=== PATIENT | male | born 1955 | race Two or more races ===

== ENCOUNTER → 2017-02-09 | Outpatient (REF) | payer OTHER ==
[2017-02-09 12:16] LABS: BASO # 0.1 K/mm3 (0.0-0.2); BASO % 0.7 % (0.0-1.0); EOS # 0.6 K/mm3 (0.0-0.50); EOS % 7.9 % (0.0-3.0); LARGE UNSTAINED CELL # 0.2 K/mm3 (0.0-0.4); LARGE UNSTAINED CELL % 2.7 % (0.0-4.0); LYMPH # 2.7 K/mm3 (1.5-4.5); LYMPH % 34.3 % (24.0-44.0); MEAN CORPUSCULAR HEMOGLOBIN 29.5 pg (27.0-33.0); MEAN CORPUSCULAR HGB CONC 34.1 g/dl (32.0-36.5); MEAN CORPUSCULAR VOLUME 86.4 fl (80.0-96.0); MONO # 0.6 K/mm3 (0.0-0.8); MONO % 7.4 % (0.0-5.0); NEUTROPHILS # 3.7 K/mm3 (1.8-7.7); PLATELET COUNT, AUTOMATED 227 k/mm3 (150-450); RED CELL DISTRIBUTION WIDTH 13.3 % (11.5-14.5); WHITE BLOOD COUNT 7.8 K/mm3 (4.0-10.0)
[2017-02-09 12:57] LABS: ALBUMIN 4.2 GM/DL (3.2-5.2); ALBUMIN/GLOBULIN RATIO 1.35 (1.00-1.93); ALKALINE PHOSPHATASE 50 U/L (45-117); ALT/SGPT 33 U/L (12-78); ANION GAP 6 MEQ/L (8-16); AST/SGOT 16 U/L (15-37); BILIRUBIN,TOTAL 0.4 MG/DL (0.2-1.0); BLOOD UREA NITROGEN 15 MG/DL (7-18); CALCIUM LEVEL 8.6 MG/DL (8.8-10.2); CARBON DIOXIDE LEVEL 28 MEQ/L (21-32); CHLORIDE LEVEL 105 MEQ/L (98-107); CHOLESTEROL LEVEL 160 MG/DL (<200); GLOMERULAR FILTRATION RATE > 60.0 (>49); GLUCOSE, FASTING 89 MG/DL (80-110); MAGNESIUM LEVEL 2.3 MG/DL (1.8-2.4); POTASSIUM SERUM 4.3 MEQ/L (3.5-5.1); SODIUM LEVEL 139 MEQ/L (136-145); T UPTAKE 34 % (33-40); THYROXINE (T4) 6.6 UG/DL (4.5-12.0); TOTAL PROTEIN 7.3 GM/DL (6.4-8.2); TRIGLYCERIDES LEVEL 125 MG/DL (<150); URIC ACID 5.6 MG/DL (3.5-7.2)
== END ==
LOC: M LABDRAWC 11:53
PROVIDERS: ATTEND Internal Medicine Cardiovascular Disease
DX: I10 Essential (primary) hypertension (principal); I25.10 Atherosclerotic heart disease of native coronary artery without angina pectoris; E11.9 Type 2 diabetes mellitus without complications; E03.9 Hypothyroidism, unspecified; D64.9 Anemia, unspecified; E55.9 Vitamin D deficiency, unspecified; M32.9 Systemic lupus erythematosus, unspecified; M06.9 Rheumatoid arthritis, unspecified; N40.1 Benign prostatic hyperplasia with lower urinary tract symptoms

== ENCOUNTER 2018-11-15 13:33 | Emergency (ER) | payer BC, OTHER ==
[~2018-11-15] VITALS: Ht 175.3 cm; Wt 90.9 kg
[2018-11-15] MEDS ORDERED: ASPI1TAB PO (13:45)
[2018-11-15] MEDS ORDERED: METO1TAB7 PO (13:45)
--- NOTE | 2018-11-15 14:12 | REP ---
CT brain without contrast: History: Injury in a fall. 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 Bone window settings show no evidence of skull fracture. There is no significant scalp hematoma. There is hyperdensity in the cruz matter of the left and medial frontal lobe consistent with petechial hemorrhage. There is some subtle adjacent white matter edema. Findings compatible with hemorrhagic contusion. No extra-axial fluid collection is seen. No other finding. Impression: Petechial gyral pattern of hemorrhage in the left medial frontal lobe consistent with hemorrhagic contusion. Some adjacent subtle white matter edema is seen. Otherwise negative. Findings telephoned to Dr. Eaton in the ED at the time of this dictation. Electronically Signed by Dong Ledezma MD 11/15/2018 02:04 P
[2018-11-15 14:38] LABS: BASO # 0.1 10^3/uL (0.0-0.2); BASO % 0.7 % (0.0-1.0); EOS # 0.5 10^3/uL (0.0-0.50); EOS % 6.2 % (0.0-3.0); HEMATOCRIT 46.9 % (42.0-52.0); HEMOGLOBIN 15.8 g/dl (13.5-17.5); LYMPH # 2.7 10^3/uL (1.5-4.5); LYMPH % 31.7 % (24.0-44.0); MEAN CORPUSCULAR HGB CONC 33.7 g/dl (32.0-36.5); MEAN CORPUSCULAR VOLUME 86.2 fl (80.0-96.0); MONO # 0.8 10^3/uL (0.0-0.8); MONO % 8.8 % (0.0-5.0); NEUTROPHILS # 4.4 10^3/uL (1.8-7.7); NEUTROPHILS % 51.9 % (36.0-66.0); PLATELET COUNT, AUTOMATED 215 10^3/uL (150-450); RED BLOOD COUNT 5.44 10^6/uL (4.30-6.10); WHITE BLOOD COUNT 8.5 10^3/uL (4.0-10.0)
[2018-11-15] MEDS ORDERED: MONT10TA2 PO (15:00)
[2018-11-15] MEDS ORDERED: CETI10TA PO (15:02)
[2018-11-15] MEDS ORDERED: LEVO25TA5 PO (15:02)
[2018-11-15] MEDS ORDERED: AMLO5TAB6 PO (15:02)
[2018-11-15 15:15] LABS: ALBUMIN 4.2 GM/DL (3.2-5.2); ALT/SGPT 42 U/L (12-78); BILIRUBIN,TOTAL 0.5 MG/DL (0.2-1.0); BLOOD UREA NITROGEN 14 MG/DL (7-18); CARBON DIOXIDE LEVEL 27 MEQ/L (21-32); CHLORIDE LEVEL 103 MEQ/L (98-107); CREATININE FOR GFR 0.99 MG/DL (0.70-1.30); GLOMERULAR FILTRATION RATE > 60.0 (>49); GLUCOSE, FASTING 123 MG/DL (70-100); POTASSIUM SERUM 4.4 MEQ/L (3.5-5.1); SODIUM LEVEL 136 MEQ/L (136-145); TOTAL PROTEIN 7.7 GM/DL (6.4-8.2)
[2018-11-15] MEDS ORDERED: LABETALOL HCL 100 MG/20 ML VIAL IV STA (15:23)
[2018-11-15 15:44] VITALS: BP 168/93
[2018-11-15 16:15] VITALS: BP 135/84
== END 2018-11-15 16:47 | disposition short-term general hospital (02) ==
LOC: M ED 13:33
DX: S06.9X1A Unspecified intracranial injury with loss of consciousness of 30 minutes or less, initial encounter (principal); W01.198A Fall on same level from slipping, tripping and stumbling with subsequent striking against other object, initial encounter; Y92.410 Unspecified street and highway as the place of occurrence of the external cause; I10 Essential (primary) hypertension; G47.33 Obstructive sleep apnea (adult) (pediatric); Z79.899 Other long term (current) drug therapy; Z79.82 Long term (current) use of aspirin

== ENCOUNTER → 2018-12-18 | Outpatient (CLI) | payer BC, OTHER ==
[~2018-12-18] MED LIST: AMLO5TAB6 PO; ASPI1TAB PO; CETI10TA PO; LEVO25TA5 PO; METO1TAB7 PO; MONT10TA2 PO
--- NOTE | 2018-12-18 13:38 | REP ---
CT STUDY OF THE BRAIN WITHOUT CONTRAST: HISTORY: Subarachnoid hemorrhage. Comparison study November 15, 2018. CT FINDINGS: The bony calvarium is intact. There is mucosal thickening and a small quantity of fluid in the frontal and ethmoid sinuses bilaterally. A mucous retention cyst is seen in the sphenoid sinus. These findings are little more prominent than on the November 15, 2018. There is minimal vascular calcification the carotid siphons. The previously noted gyral pattern of increased density in the left medial frontal lobe has resolved. No encephalomalacia is visible. No extra-axial fluid collection is seen. There is no evidence of intracranial hemorrhage on the current CT study. IMPRESSION: Minimal vascular calcification. No acute intracranial abnormality. Previously noted hemorrhagic contusion changes have resolved. Electronically Signed by Dong Ledezma MD 12/18/2018 05:04 P
== END ==
LOC: M RAD 12:48
PROVIDERS: ATTEND Family Medicine
DX: J34.1 Cyst and mucocele of nose and nasal sinus (principal); Z86.79 Personal history of other diseases of the circulatory system

== ENCOUNTER → 2019-04-02 | Outpatient (REF) | payer OTHER ==
[~2019-04-02] MED LIST changes: -ASPI1TAB PO; +ASPI81TA26 PO
[2019-04-02 17:33] LABS: HEMOGLOBIN A1c 6.2 %
[2019-04-02 17:55] LABS: MALB URINE SIEMENS 23.3 MG/L; MAU/CREAT RATIO 9.5 MCG/MG (0.0-30.0)
== END ==
LOC: M SFHCCLAY 12:04
PROVIDERS: ATTEND Family Medicine
DX: E11.9 Type 2 diabetes mellitus without complications (principal)

== ENCOUNTER → 2019-04-22 | Outpatient (REF) | payer OTHER ==
[2019-04-22 12:28] LABS: CHOLESTEROL RISK RATIO 3.55 (<5); FREE T4 1.03 NG/DL (0.76-1.46); THYROID STIMULATING HORMONE 6.44 uIU/ML (0.358-3.740)
== END ==
LOC: M SFHCCLAY 07:05
PROVIDERS: ATTEND Family Medicine
DX: E03.9 Hypothyroidism, unspecified (principal); E78.5 Hyperlipidemia, unspecified

== ENCOUNTER → 2019-07-10 | Outpatient (REF) | payer OTHER ==
[2019-07-11 13:51] LABS: HEMOGLOBIN A1c 5.8 %
== END ==
LOC: M SFHCCLAY 15:27
PROVIDERS: ATTEND Family Medicine
DX: E11.9 Type 2 diabetes mellitus without complications (principal)

== ENCOUNTER → 2019-12-29 | Outpatient (REF) | payer OTHER ==
[~2019-12-29] MED LIST changes: -MONT10TA2 PO; +MONT10TA4 PO
[2019-12-29 16:24] LABS: BLOOD UREA NITROGEN 19 MG/DL (7-18); CALCIUM LEVEL 8.5 MG/DL (8.8-10.2); CARBON DIOXIDE LEVEL 27 MEQ/L (21-32); CHLORIDE LEVEL 107 MEQ/L (98-107); CREATININE FOR GFR 1.07 MG/DL (0.70-1.30); GLOMERULAR FILTRATION RATE > 60.0 (>49); GLUCOSE, FASTING 96 MG/DL (70-100); SODIUM LEVEL 140 MEQ/L (136-145)
[2019-12-29 17:45] LABS: HEMOGLOBIN A1c 5.8 %
== END ==
LOC: M SFHCCLAY 10:00
PROVIDERS: ATTEND Family Medicine
DX: E11.9 Type 2 diabetes mellitus without complications (principal); I10 Essential (primary) hypertension

== ENCOUNTER → 2020-06-30 | Outpatient (REF) | payer OTHER ==
[~2020-06-30] MED LIST changes: +AMLO1TAB24 PO; -AMLO5TAB6 PO
[2020-06-30 12:21] LABS: BLOOD UREA NITROGEN 12 MG/DL (7-18); CALCIUM LEVEL 8.7 MG/DL (8.8-10.2); CARBON DIOXIDE LEVEL 29 MEQ/L (21-32); CHLORIDE LEVEL 105 MEQ/L (98-107); CHOLESTEROL LEVEL 180 MG/DL (<200); CHOLESTEROL RISK RATIO 4.186 (<5); CREATININE FOR GFR 1.12 MG/DL (0.70-1.30); GLOMERULAR FILTRATION RATE > 60.0 (>49); GLUCOSE, FASTING 91 MG/DL (70-100); HDL CHOLESTEROL 43 MG/DL (>40); LDL CHOLESTEROL 117 MG/DL (<100); NON-HDL-C 137 MG/DL; POTASSIUM SERUM 4.4 MEQ/L (3.5-5.1); SODIUM LEVEL 139 MEQ/L (136-145); TRIGLYCERIDES LEVEL 100 MG/DL (<150)
[2020-06-30 12:46] LABS: HEMOGLOBIN A1c 5.4 %
[2020-06-30 12:53] LABS: MALB URINE SIEMENS < 5.0 MG/L; MAU/CREAT RATIO 4.3 MCG/MG (0.0-30.0)
== END ==
LOC: M SFHCCLAY 11:10
PROVIDERS: ATTEND Family Medicine
DX: I11.9 Hypertensive heart disease without heart failure (principal); E11.9 Type 2 diabetes mellitus without complications

== ENCOUNTER 2020-08-31 07:34 | Emergency (ER) | payer BC, OTHER ==
[~2020-08-31] VITALS: Ht 177.8 cm; Wt 77.7 kg
[~2020-08-31 07:34] MED LIST changes: -MONT10TA4 PO; +MONT5TAB2 PO
[2020-08-31] MEDS ORDERED: VALS1TAB67 (07:45)
[2020-08-31] MEDS ORDERED: AMLO1TAB25 (07:45)
--- NOTE | 2020-08-31 08:13 | REP ---
INDICATION: CHEST PAIN COMPARISON: None. TECHNIQUE: Portable AP view of the chest FINDINGS: The mediastinum and cardiac silhouette are stable and within normal limits for portable technique. The lung cunningham are clear without acute consolidation, effusion, or pneumothorax. Skeletal structures are intact. IMPRESSION: No acute cardiopulmonary process appreciated. No focal consolidation or effusion. <Electronically signed by Jose Deleon > 08/31/20 0849
[2020-08-31] MEDS ORDERED: GI COCKTAIL 50ML BTL(HYOSCYAMINE/MAALOX/LIDOCAINE VISCOUS)(1:3:1) PO ONE (08:15)
[2020-08-31 08:17] LABS: BASO # 0.1 10^3/uL (0.0-0.2); EOS # 0.4 10^3/uL (0.0-0.5); EOS % 7.1 % (0.0-3.0); HEMATOCRIT 45.1 % (42.0-52.0); LYMPH # 2.2 10^3/uL (1.5-5.0); LYMPH % 36.3 % (24.0-44.0); MEAN CORPUSCULAR HEMOGLOBIN 30.1 pg (27.0-33.0); MEAN CORPUSCULAR HGB CONC 33.3 g/dl (32.0-36.5); MEAN CORPUSCULAR VOLUME 90.4 fl (80.0-96.0); MONO # 0.6 10^3/uL (0.0-0.8); MONO % 10.4 % (0.0-5.0); NEUTROPHILS # 2.8 10^3/uL (1.5-8.5); NEUTROPHILS % 44.7 % (36.0-66.0); PLATELET COUNT, AUTOMATED 211 10^3/uL (150-450); RED BLOOD COUNT 4.99 10^6/uL (4.30-6.10); WHITE BLOOD COUNT 6.2 10^3/uL (4.0-10.0)
[2020-08-31 08:28] LABS: INR 1.04; PARTIAL THROMBOPLASTIN TIME 29.8 SECONDS (24.2-38.5); PROTHROMBIN TIME 13.8 SECONDS (12.5-14.3)
[2020-08-31 08:51] LABS: ALBUMIN 4.3 GM/DL (3.2-5.2); ALT/SGPT 27 U/L (12-78); BILIRUBIN,DIRECT 0.2 MG/DL (0.0-0.2); BLOOD UREA NITROGEN 16 MG/DL (7-18); CALCIUM LEVEL 9.2 MG/DL (8.8-10.2); CARBON DIOXIDE LEVEL 30 MEQ/L (21-32); CHLORIDE LEVEL 103 MEQ/L (98-107); CK-MB VALUE MASS < 1.0 NG/ML (<3.6); CPK CREATINE PHOSPHOKINASE 145 U/L (39-308); CREATININE FOR GFR 1.27 MG/DL (0.70-1.30); FREE T4 0.97 NG/DL (0.76-1.46); GLOMERULAR FILTRATION RATE > 60.0 (>49); GLUCOSE, FASTING 94 MG/DL (70-100); LIPASE 225 U/L (73-393); MB/CK RELATIVE INDEX 0.69 (< OR =4); POTASSIUM SERUM 4.5 MEQ/L (3.5-5.1); SODIUM LEVEL 138 MEQ/L (136-145); TOTAL PROTEIN 7.7 GM/DL (6.4-8.2); TROPONIN I < 0.02 NG/ML (< 0.10)
[2020-08-31 13:25] VITALS: BP 133/78
--- NOTE | 2020-08-31 21:00 | ECGEPIP ---
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
--- NOTE | 2020-08-31 21:11 | ECGEPIP ---
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
== END 2020-08-31 13:27 | disposition home or self-care (01) ==
LOC: M ED 07:34
DX: R07.9 Chest pain, unspecified (principal); R00.1 Bradycardia, unspecified; I10 Essential (primary) hypertension; Z79.899 Other long term (current) drug therapy
CPT/HCPCS: 36415; 71045; 80047; 80048; 80076; 82550; 82553; 83690; 84439; 84443; 84484; 85025; 85610; 85730; 93005; 93041; 94760; 99285; U0002

== ENCOUNTER → 2020-10-19 | Outpatient (CLI) | payer SELFPAY ==
[~2020-10-19] MED LIST changes: +AMLO1TAB25; +VALS1TAB67
== END ==
LOC: M LABSMTC 14:19
PROVIDERS: ATTEND Pediatrics
DX: Z20.822 Contact with and (suspected) exposure to COVID-19 (principal)

== ENCOUNTER → 2021-03-30 | Outpatient (REF) | payer OTHER ==
[~2021-03-30] MED LIST changes: +MONT10TA10 PO; -MONT5TAB2 PO
[2021-03-30 12:18] LABS: HEMOGLOBIN A1c 5.7 %
[2021-03-30 12:44] LABS: MALB URINE SIEMENS 7.5 MG/L; MAU/CREAT RATIO 6.5 MCG/MG (0.0-30.0)
[2021-03-30 13:10] LABS: BLOOD UREA NITROGEN 12 MG/DL (7-18); CALCIUM LEVEL 9.2 MG/DL (8.8-10.2); CARBON DIOXIDE LEVEL 29 MEQ/L (21-32); CHLORIDE LEVEL 105 MEQ/L (98-107); CHOLESTEROL LEVEL 212 MG/DL (<200); CREATININE FOR GFR 1.14 MG/DL (0.70-1.30); FREE T4 0.98 NG/DL (0.76-1.46); GLOMERULAR FILTRATION RATE > 60.0 (>49); GLUCOSE, FASTING 90 MG/DL (70-100); HDL CHOLESTEROL 43 MG/DL (>40); LDL CHOLESTEROL 138 MG/DL (<100); NON-HDL-C 169 MG/DL; POTASSIUM SERUM 4.5 MEQ/L (3.5-5.1); SODIUM LEVEL 137 MEQ/L (136-145); TRIGLYCERIDES LEVEL 155 MG/DL (<150)
== END ==
LOC: M SFHCCLAY 06:57
PROVIDERS: ATTEND Family Medicine
DX: E03.9 Hypothyroidism, unspecified (principal); E11.9 Type 2 diabetes mellitus without complications; E78.5 Hyperlipidemia, unspecified

== ENCOUNTER → 2021-04-15 | Outpatient (CLI) | payer BC, OTHER ==
--- NOTE | 2021-04-15 15:32 | REPVR ---
PROCEDURE INFORMATION: Exam: CT Maxillofacial Without Contrast, Sinus Exam date and time: 04/15/2021 3:10 PM Age: 65 years old Clinical indication: Pain; Other: Sinus; Additional info: Chronic sinusitis TECHNIQUE: Imaging protocol: CT Maxillofacial without contrast. Focus on the sinuses. Radiation optimization: All CT scans at this facility use at least one of these dose optimization techniques: automated exposure control; mA and/or kV adjustment per patient size (includes targeted exams where dose is matched to clinical indication); or iterative reconstruction. COMPARISON: CT Head without contrast 12/18/2018 12:57 PM FINDINGS: Frontal sinuses: Mild right frontal sinus mucosal thickening. The right frontal recess is opacified by mucosal disease. Pneumatization of the right frontal sinus extends across midline. The left frontal recess is opacified by mucosal disease but the remainder of the left frontal sinus is clear. Ethmoid air cells: There is right greater than left ethmoid opacity. Sphenoid sinuses: Mild polypoid mucosal thickening in the inferior left sphenoid sinus. The right sphenoid sinus is clear. Maxillary sinuses: [id number] polypoid mucosal thickening in the maxillary sinuses. Likely prior uncinectomies and nasal antral window procedures. The sinus drainage pathways are opacified by mucosal disease. Nasal cavity/Septum: Prior middle turbinectomies. No nasal cavity mass is seen. As visualized, the chronic sinusitis is similar to the prior study. There is left maxillary periapical lucency, likely chronic. Orbital cavity: Orbits are normal. Globes are unremarkable. Bones/joints: Unremarkable. Soft tissues: Unremarkable. IMPRESSION: [id number] chronic sinusitis with opacification of the frontal recesses and maxillary sinus drainage pathways. Electronically signed by: Kelly Talamantes On 04/15/2021 15:32:44 PM
== END ==
LOC: M RAD 14:50
PROVIDERS: ATTEND Specialist
DX: J32.8 Other chronic sinusitis (principal)

== ENCOUNTER → 2021-10-03 | Outpatient (REF) | payer OTHER ==
[~2021-10-03] MED LIST changes: -MONT10TA10 PO; +MONT10TA97 PO
[2021-10-03 12:44] LABS: HEMOGLOBIN A1c 5.5 %
[2021-10-03 13:05] LABS: BLOOD UREA NITROGEN 15 MG/DL (7-18); CALCIUM LEVEL 9.1 MG/DL (8.8-10.2); CARBON DIOXIDE LEVEL 29 MEQ/L (21-32); CHLORIDE LEVEL 105 MEQ/L (98-107); CREATININE FOR GFR 1.09 MG/DL (0.70-1.30); FREE T4 0.96 NG/DL (0.76-1.46); GLOMERULAR FILTRATION RATE > 60.0 (>49); GLUCOSE, FASTING 91 MG/DL (70-100); POTASSIUM SERUM 4.3 MEQ/L (3.5-5.1); SODIUM LEVEL 138 MEQ/L (136-145)
== END ==
LOC: M SFHCCLAY 07:16
PROVIDERS: ATTEND Family Medicine
DX: E11.9 Type 2 diabetes mellitus without complications (principal); I11.9 Hypertensive heart disease without heart failure; E03.9 Hypothyroidism, unspecified

== ENCOUNTER → 2022-03-30 | Outpatient (REF) | payer OTHER ==
[2022-03-30 11:46] LABS: HEMOGLOBIN A1c 5.7 %
[2022-03-30 12:04] LABS: BLOOD UREA NITROGEN 21 MG/DL (7-18); CALCIUM LEVEL 9.2 MG/DL (8.8-10.2); CARBON DIOXIDE LEVEL 25 MEQ/L (21-32); CHLORIDE LEVEL 106 MEQ/L (98-107); CHOLESTEROL LEVEL 176 MG/DL (<200); CHOLESTEROL RISK RATIO 4.512 (<5); CREATININE FOR GFR 1.13 MG/DL (0.70-1.30); GLOMERULAR FILTRATION RATE > 60.0 (>49); GLUCOSE, FASTING 86 MG/DL (70-100); HDL CHOLESTEROL 39 MG/DL (>40); LDL CHOLESTEROL 113 MG/DL (<100); NON-HDL-C 137 MG/DL; POTASSIUM SERUM 4.2 MEQ/L (3.5-5.1); SODIUM LEVEL 140 MEQ/L (136-145); TRIGLYCERIDES LEVEL 118 MG/DL (<150)
[2022-03-30 12:10] LABS: CREATININE, URINE 65.9 MG/DL; MALB URINE SIEMENS < 5.0 MG/L; MAU/CREAT RATIO 7.5 MCG/MG (0.0-30.0)
== END ==
LOC: M SFHCCLAY 07:07
PROVIDERS: ATTEND Family Medicine
DX: E11.9 Type 2 diabetes mellitus without complications (principal); I11.9 Hypertensive heart disease without heart failure

== ENCOUNTER → 2022-04-12 | Outpatient (CLI) | payer BC, OTHER | LOC: M RAD 07:20 | PROVIDERS: ATTEND Family Medicine | DX: R10.11 Right upper quadrant pain (principal); N28.1 Cyst of kidney, acquired; R14.0 Abdominal distension (gaseous) ==

== ENCOUNTER → 2022-09-29 | Outpatient (REF) | payer OTHER ==
[2022-09-29 17:17] LABS: BASO # 0.1 10^3/uL (0.0-0.2); BASO % 1.3 % (0.0-1.0); EOS # 0.4 10^3/uL (0.0-0.5); EOS % 5.5 % (0.0-3.0); HEMATOCRIT 50.5 % (42.0-52.0); HEMOGLOBIN 16.5 g/dl (13.5-17.5); LYMPH # 2.8 10^3/uL (1.5-5.0); LYMPH % 39.9 % (24.0-44.0); MEAN CORPUSCULAR HEMOGLOBIN 29.4 pg (27.0-33.0); MEAN CORPUSCULAR HGB CONC 32.7 g/dl (32.0-36.5); MONO # 0.8 10^3/uL (0.0-0.8); MONO % 11.1 % (2.0-8.0); NEUTROPHILS % 41.6 % (36.0-66.0); PLATELET COUNT, AUTOMATED 213 10^3/uL (150-450); RED BLOOD COUNT 5.61 10^6/uL (4.30-6.10); WHITE BLOOD COUNT 7.1 10^3/uL (4.0-10.0)
[2022-09-29 17:32] LABS: HEMOGLOBIN A1c 5.7 % (4.0-6.0)
[2022-09-29 18:06] LABS: ALBUMIN 4.5 G/DL (3.2-5.2); ALKALINE PHOSPHATASE 53 U/L (46-116); ALT/SGPT 41 U/L (7.0-40); AST/SGOT 28 U/L (<34); BILIRUBIN,TOTAL 0.6 MG/DL (0.3-1.2); BLOOD UREA NITROGEN 18 MG/DL (9-23); CALCIUM LEVEL 9.6 MG/DL (8.3-10.6); CARBON DIOXIDE LEVEL 27 MMOL/L (20-31); CHLORIDE LEVEL 101 MMOL/L (98-107); CHOLESTEROL LEVEL 196 MG/DL (<200); CHOLESTEROL RISK RATIO 4.72 (<5); CREATININE FOR GFR 1.06 MG/DL (0.70-1.30); FREE T4 0.98 NG/DL (0.89-1.76); GLOMERULAR FILTRATION RATE > 60.0 (>49); GLUCOSE, FASTING 90 MG/DL (74-106); HDL CHOLESTEROL 41.5 MG/DL (>40); LDL CHOLESTEROL 120.3 MG/DL (<100); NON-HDL-C 155 MG/DL; POTASSIUM SERUM 4.6 MMOL/L (3.5-5.1); SODIUM LEVEL 137 MMOL/L (136-145); THYROID STIMULATING HORMONE 4.731 uIU/ML (0.55-4.78); TOTAL PROTEIN 7.8 G/DL (5.7-8.2); TRIGLYCERIDES LEVEL 171 MG/DL (<150)
== END ==
LOC: M SFHCCLAY 10:50
PROVIDERS: ATTEND Family Medicine
DX: I10 Essential (primary) hypertension (principal); E03.9 Hypothyroidism, unspecified; E11.9 Type 2 diabetes mellitus without complications; Z12.5 Encounter for screening for malignant neoplasm of prostate; J30.9 Allergic rhinitis, unspecified
CPT/HCPCS: 80053; 80061; 83036; 84439; 84443; 85025; G0103

== ENCOUNTER → 2022-12-04 | Outpatient (REF) | payer OTHER ==
[2022-12-04 11:57] LABS: CHOLESTEROL RISK RATIO 2.66 (<5); HDL CHOLESTEROL 41.2 MG/DL (>40); LDL CHOLESTEROL 53.2 MG/DL (<100)
== END ==
LOC: M SFHCCLAY 07:06
PROVIDERS: ATTEND Family Medicine
DX: E78.5 Hyperlipidemia, unspecified (principal)

== ENCOUNTER → 2023-04-12 | Outpatient (REF) | payer OTHER ==
[2023-04-12 12:25] LABS: APPEARANCE, URINE CLEAR (CLEAR); BACTERIA, URINE AUTO NEGATIVE (NEGATIVE); BILIRUBIN, URINE AUTO NEGATIVE (NEGATIVE); BLOOD, URINE BLOOD NEGATIVE (NEGATIVE); COLOR, URINE YELLOW (YELLOW); GLUCOSE, URINE (UA) AUTO NEGATIVE (NEGATIVE); KETONE, URINE AUTO NEGATIVE (NEGATIVE); LEUKOCYTE ESTERASE, URINE AUTO NEGATIVE (NEGATIVE); MUCUS, URINE SMALL (NEGATIVE); NITRITE, URINE AUTO NEGATIVE (NEGATIVE); PROTEIN, URINE AUTO NEGATIVE (NEGATIVE); RBC, URINE AUTO 0 /HPF (0-3); SPECIFIC GRAVITY URINE AUTO 1.012 (1.002-1.035); SQUAMOUS EPITHELIAL CELL UR AU 0 /HPF (0-6); UROBILINOGEN, URINE AUTO 0.2 mg/dL (0.0-2.0); WBC, URINE AUTO 0 /HPF (0-3)
[2023-04-12 12:31] LABS: ALBUMIN 4.1 G/DL (3.2-5.2); ALKALINE PHOSPHATASE 44 U/L (46-116); ALT/SGPT 41 U/L (7.0-40); AST/SGOT 23 U/L (<34); BILIRUBIN,TOTAL 0.6 MG/DL (0.3-1.2); BLOOD UREA NITROGEN 10 MG/DL (9-23); CALCIUM LEVEL 9.2 MG/DL (8.3-10.6); CARBON DIOXIDE LEVEL 28 MMOL/L (20-31); CHLORIDE LEVEL 105 MMOL/L (98-107); CHOLESTEROL LEVEL 100 MG/DL (<200); CHOLESTEROL RISK RATIO 2.93 (<5); CREATININE FOR GFR 1.04 MG/DL (0.70-1.30); GLOMERULAR FILTRATION RATE > 60.0 (>49); GLUCOSE, FASTING 91 MG/DL (74-106); HDL CHOLESTEROL 34.1 MG/DL (>40); LDL CHOLESTEROL 46.5 MG/DL (<100); NON-HDL-C 65.9 MG/DL; POTASSIUM SERUM 4.2 MMOL/L (3.5-5.1); SODIUM LEVEL 138 MMOL/L (136-145); TOTAL PROTEIN 6.9 G/DL (5.7-8.2); TRIGLYCERIDES LEVEL 97 MG/DL (<150)
[2023-04-12 12:45] LABS: CREATININE, URINE 137.2 MG/DL; MAU/CREAT RATIO 2.1 MCG/MG (0.0-30.0)
== END ==
LOC: M SFHCCLAY 07:10
PROVIDERS: ATTEND Family Medicine
DX: I10 Essential (primary) hypertension (principal); E11.9 Type 2 diabetes mellitus without complications

== ENCOUNTER → 2023-09-24 | Outpatient (REF) | payer OTHER ==
[2023-09-24 12:53] LABS: ALBUMIN 4.2 G/DL (3.2-5.2); ALKALINE PHOSPHATASE 43 U/L (46-116); ALT/SGPT 45 U/L (7.0-40); AST/SGOT 33 U/L (<34); BILIRUBIN,TOTAL 0.9 MG/DL (0.3-1.2); BLOOD UREA NITROGEN 20 MG/DL (9-23); CALCIUM LEVEL 8.7 MG/DL (8.3-10.6); CARBON DIOXIDE LEVEL 28 MMOL/L (20-31); CHLORIDE LEVEL 102 MMOL/L (98-107); CREATININE FOR GFR 1.07 MG/DL (0.70-1.30); GLOMERULAR FILTRATION RATE > 60.0 (>49); GLUCOSE, FASTING 99 MG/DL (74-106); POTASSIUM SERUM 4.7 MMOL/L (3.5-5.1); SODIUM LEVEL 136 MMOL/L (136-145); TOTAL PROTEIN 7.1 G/DL (5.7-8.2)
[2023-09-24 12:54] LABS: FREE T4 0.98 NG/DL (0.89-1.76); THYROID STIMULATING HORMONE 7.077 uIU/ML (0.55-4.78)
[2023-09-24 13:43] LABS: HEMOGLOBIN A1c 5.9 % (4.0-6.0)
== END ==
LOC: M SFHCCLAY 07:05
PROVIDERS: ATTEND Family Medicine
DX: I10 Essential (primary) hypertension (principal); E03.9 Hypothyroidism, unspecified; E11.9 Type 2 diabetes mellitus without complications; Z12.5 Encounter for screening for malignant neoplasm of prostate

== ENCOUNTER → 2023-10-01 | Outpatient (REF) | payer OTHER ==
[2023-10-01 13:12] LABS: CHOLESTEROL LEVEL 112 MG/DL (<200); CHOLESTEROL RISK RATIO 2.71 (<5); HDL CHOLESTEROL 41.3 MG/DL (>40); LDL CHOLESTEROL 57.3 MG/DL (<100); NON-HDL-C 70.7 MG/DL; TRIGLYCERIDES LEVEL 67 MG/DL (<150)
[2023-10-01 13:32] LABS: HEPATITIS B SURFACE ANTIBODY POSITIVE (POSITIVE)
[2023-10-01 13:39] LABS: HIV 1&2 SCREEN NEGATIVE (NEGATIVE)
[2023-10-01 13:47] LABS: HEPATITIS C VIRUS ABY INDEX 0.05 INDEX (<0.8)
[2023-10-02 23:07] LABS: ANA (HEP2) Negative (.); HEPATITIS B CORE ANTIBODY IGG Negative (Negative); LIVER-KIDNEY MICROSOMAL ABY <20.1 Units (0.0-20.0)
== END ==
LOC: M SFHCCLAY 07:03
PROVIDERS: ATTEND Family Medicine
DX: Z20.9 Contact with and (suspected) exposure to unspecified communicable disease (principal); I10 Essential (primary) hypertension; E78.5 Hyperlipidemia, unspecified; R74.01 Elevation of levels of liver transaminase levels; Z28.21 Immunization not carried out because of patient refusal

== ENCOUNTER → 2024-01-02 | Outpatient (REF) | payer OTHER ==
[2024-01-02 18:44] LABS: THYROID STIMULATING HORMONE 5.265 uIU/ML (0.55-4.78)
[2024-01-02 18:45] LABS: FREE T4 1.02 NG/DL (0.89-1.76)
== END ==
LOC: M SFHCCLAY 11:08
PROVIDERS: ATTEND Family Medicine
DX: R79.89 Other specified abnormal findings of blood chemistry (principal)

== ENCOUNTER → 2024-04-02 | Outpatient (REF) | payer BC ==
[2024-04-02 11:48] LABS: APPEARANCE, URINE CLEAR (CLEAR); BACTERIA, URINE AUTO NEGATIVE (NEGATIVE); BILIRUBIN, URINE AUTO NEGATIVE (NEGATIVE); BLOOD, URINE BLOOD NEGATIVE (NEGATIVE); COLOR, URINE YELLOW (YELLOW); GLUCOSE, URINE (UA) AUTO NEGATIVE (NEGATIVE); KETONE, URINE AUTO NEGATIVE (NEGATIVE); LEUKOCYTE ESTERASE, URINE AUTO NEGATIVE (NEGATIVE); MUCUS, URINE SMALL (NEGATIVE); NITRITE, URINE AUTO NEGATIVE (NEGATIVE); PROTEIN, URINE AUTO NEGATIVE (NEGATIVE); RBC, URINE AUTO 0 /HPF (0-3); SQUAMOUS EPITHELIAL CELL UR AU 0 /HPF (0-6); UROBILINOGEN, URINE AUTO 0.2 mg/dL (0.0-2.0); WBC, URINE AUTO 0 /HPF (0-3)
[2024-04-02 12:13] LABS: ALBUMIN 4.4 G/DL (3.2-5.2); ALKALINE PHOSPHATASE 48 U/L (46-116); ALT/SGPT 45 U/L (7.0-40); AST/SGOT 32 U/L (<34); BILIRUBIN,TOTAL 0.9 MG/DL (0.3-1.2); BLOOD UREA NITROGEN 11 MG/DL (9-23); CALCIUM LEVEL 9.3 MG/DL (8.3-10.6); CARBON DIOXIDE LEVEL 29 MMOL/L (20-31); CHLORIDE LEVEL 104 MMOL/L (98-107); CHOLESTEROL LEVEL 111 MG/DL (<200); CHOLESTEROL RISK RATIO 2.87 (<5); CREATININE FOR GFR 1.07 MG/DL (0.70-1.30); GLOMERULAR FILTRATION RATE > 60.0 (>49); GLUCOSE, FASTING 94 MG/DL (74-106); HDL CHOLESTEROL 38.6 MG/DL (>40); LDL CHOLESTEROL 55.6 MG/DL (<100); NON-HDL-C 72.4 MG/DL; POTASSIUM SERUM 4.6 MMOL/L (3.5-5.1); PSA SCREENING 0.37 NG/ML (< 4.00); SODIUM LEVEL 135 MMOL/L (136-145); TRIGLYCERIDES LEVEL 84 MG/DL (<150)
[2024-04-02 12:17] LABS: FREE T4 0.96 NG/DL (0.89-1.76); THYROID STIMULATING HORMONE 5.861 uIU/ML (0.55-4.78)
[2024-04-02 12:26] LABS: MALB URINE SIEMENS < 3.0 MG/L; MAU/CREAT RATIO 2.8 MCG/MG (0.0-30.0)
[2024-04-02 12:37] LABS: HEMOGLOBIN A1c 5.8 % (4.0-6.0)
== END ==
LOC: M SFHCCLAY 07:09
PROVIDERS: ATTEND Family Medicine
DX: I10 Essential (primary) hypertension (principal); Z28.21 Immunization not carried out because of patient refusal; E78.5 Hyperlipidemia, unspecified; R74.01 Elevation of levels of liver transaminase levels; E03.9 Hypothyroidism, unspecified; E11.9 Type 2 diabetes mellitus without complications; Z12.5 Encounter for screening for malignant neoplasm of prostate; R79.89 Other specified abnormal findings of blood chemistry
CPT/HCPCS: 80053; 80061; 81001; 82043; 83036; 84439; 84443; G0103

== ENCOUNTER 2024-11-09 17:50 | Emergency (ER) | payer BC, MEDICARE ==
[2024-11-09 18:13] LABS: BASO # 0.1 10^3/uL (0.0-0.2); BASO % 1.1 % (0.0-1.0); EOS # 0.3 10^3/uL (0.0-0.5); EOS % 3.9 % (0.0-3.0); HEMATOCRIT 44.8 % (42.0-52.0); HEMOGLOBIN 15.1 g/dl (13.5-17.5); MEAN CORPUSCULAR HGB CONC 33.7 g/dl (32.0-36.5); MEAN CORPUSCULAR VOLUME 88.9 fl (80.0-96.0); MONO # 0.9 10^3/uL (0.0-0.8); MONO % 10.6 % (2.0-8.0); PLATELET COUNT, AUTOMATED 213 10^3/uL (150-450); RED BLOOD COUNT 5.04 10^6/uL (4.30-6.10); WHITE BLOOD COUNT 8.4 10^3/uL (4.0-10.0)
[2024-11-09 18:43] LABS: BLOOD UREA NITROGEN 14 MG/DL (9-23); CALCIUM LEVEL 8.9 MG/DL (8.3-10.6); CARBON DIOXIDE LEVEL 25 MMOL/L (20-31); CHLORIDE LEVEL 103 MMOL/L (98-107); CK-MB VALUE MASS < 1.0 NG/ML (<3.6); CREATININE FOR GFR 1.11 MG/DL (0.70-1.30); GLOMERULAR FILTRATION RATE > 60.0 (>49); GLUCOSE, FASTING 99 MG/DL (74-106); POTASSIUM SERUM 4.8 MMOL/L (3.5-5.1); SODIUM LEVEL 139 MMOL/L (136-145)
[2024-11-09 18:47] LABS: CPK CREATINE PHOSPHOKINASE 281 U/L (46-171); MB/CK RELATIVE INDEX 0.35 (< OR =4)
[2024-11-09 19:44] LABS: CK-MB VALUE MASS 1.5 NG/ML (<3.6)
[2024-11-09 19:46] LABS: CPK CREATINE PHOSPHOKINASE 253 U/L (46-171); MB/CK RELATIVE INDEX 0.59 (< OR =4)
[2024-11-09] MEDS: MAALOX 30 ML SUSP *UDC PO ONE (20:40)
[2024-11-09] MEDS: LIDOCAINE VISCOUS 2% SOLN 15ML UDC PO ONE (20:40)
[2024-11-09 21:56] LABS: CK-MB VALUE MASS 1.5 NG/ML (<3.6)
[2024-11-09 22:02] LABS: MB/CK RELATIVE INDEX 0.6 (< OR =4)
[2024-11-09] MEDS ORDERED: OMEP40CA4 PO (22:24)
[2024-11-09 22:29] VITALS: O2SAT 98
[2024-11-09 22:30] VITALS: BP 144/87
[2024-11-09 22:45] VITALS: TEMP 98.1
== END 2024-11-09 22:46 | disposition home or self-care (01) ==
LOC: M ED 17:50
DX: R07.9 Chest pain, unspecified (principal); K21.9 Gastro-esophageal reflux disease without esophagitis; I10 Essential (primary) hypertension; E03.9 Hypothyroidism, unspecified; Z87.891 Personal history of nicotine dependence; Z79.899 Other long term (current) drug therapy; Z79.83 Long term (current) use of bisphosphonates

== ENCOUNTER → 2025-02-05 | Outpatient (CLI) | payer BC ==
[~2025-02-05] MED LIST changes: +OMEP40CA4 PO
== END ==
LOC: M CARPUL 11:05
PROVIDERS: ATTEND Physician Assistant
DX: R07.89 Other chest pain (principal); Z53.9 Procedure and treatment not carried out, unspecified reason

== ENCOUNTER → 2025-02-05 | Outpatient (CLI) | payer BC | LOC: M PLAIMG 09:46 | PROVIDERS: ATTEND Physician Assistant | DX: R07.89 Other chest pain (principal) ==

== ENCOUNTER → 2025-04-15 | Outpatient (REF) | payer BC ==
[2025-04-15 18:47] LABS: PSA SCREENING 0.45 NG/ML (< 4.00)
[2025-04-15 18:52] LABS: FREE T4 0.96 NG/DL (0.89-1.76)
[2025-04-15 18:53] LABS: ALT/SGPT 42.0 U/L (7.0-40); AST/SGOT 32.0 U/L (<34); CALCIUM LEVEL 9.2 MG/DL (8.3-10.6); CARBON DIOXIDE LEVEL 26.0 MMOL/L (20-31); CHLORIDE LEVEL 101.0 MMOL/L (98-107); CHOLESTEROL LEVEL 108.0 MG/DL (<200); CHOLESTEROL RISK RATIO 2.62 (<5); CREATININE FOR GFR 1.07 MG/DL (0.70-1.30); GLOMERULAR FILTRATION RATE 75.6 (>49); LDL CHOLESTEROL 53.1 MG/DL (<100); MAGNESIUM LEVEL 2.3 MG/DL (1.8-2.4); NON-HDL-C 66.9 MG/DL; POTASSIUM SERUM 4.4 MMOL/L (3.5-5.1); SODIUM LEVEL 140.0 MMOL/L (136-145); TRIGLYCERIDES LEVEL 69.0 MG/DL (<150)
[2025-04-15 19:12] LABS: ESTIMATED AVERAGE GLUCOSE 117.0 MG/DL (60-110)
== END ==
LOC: M SFHCCLAY 13:12
PROVIDERS: ATTEND Nurse Practitioner Family
DX: E03.9 Hypothyroidism, unspecified (principal); E11.9 Type 2 diabetes mellitus without complications; R94.39 Abnormal result of other cardiovascular function study; Z12.5 Encounter for screening for malignant neoplasm of prostate
CPT/HCPCS: 80053; 80061; 83036; 83735; 84439; 84443; G0103